=== PATIENT | female | born 1965 | race Two or more races ===

== ENCOUNTER 2025-06-24 07:10 | Outpatient (CLI) | payer OTHER | END 2025-06-24 07:16 | disposition home or self-care (01) | LOC: NUCLEAR 07:10 | PROVIDERS: ATTEND Internal Medicine | DX: C50.411 Malignant neoplasm of upper-outer quadrant of right female breast (principal); C77.3 Secondary and unspecified malignant neoplasm of axilla and upper limb lymph nodes ==